=== PATIENT | male | born 1985 | race African-American/Black ===

== ENCOUNTER 2019-09-17 21:15 | Emergency (ER) | payer OTHER ==
[2019-09-17 21:19] VITALS: BP 151/90; PULSE 68; RESP 16; TEMP 98.4
[2019-09-17] MEDS ORDERED: ACET/COD 300 MG/30 MG STARTER PACK 6 TAB BTL PO STA (22:55)
[2019-09-17] MEDS ORDERED: PENICILLIN VK 500MG STARTER 4 TAB BTL PO STA (22:55)
--- NOTE | 2019-09-17 22:57 | ED ---
General Adult HPI - General Chief complaint: Dental/Oral Stated complaint: dental pain Time Seen by Provider: 09/17/19 22:19 Source: patient, RN notes reviewed Mode of arrival: ambulatory Limitations: no limitations - History of Present Illness Initial comments: 34-year-old male without a significant past medical history presents to the emergency department for a chief complaint of dental pain. Patient states that several years ago he had a tooth removed and it cracked his other tooth. States that the past couple days he started having pain in this area. States he believes it may be infected. He denies fevers or chills. Denies length. Denies difficulty opening his mouth. Denies difficulty swallowing. Denies any neck stiffness or headaches.Patient has no other complaints at this time including shortness of breath, chest pain, abdominal pain, nausea or vomiting, headache, or visual changes. - Related Data Previous Rx's Medication Instructions Recorded HYDROcodone/APAP 5-325MG [[place] 1 each PO Q6HR PRN #20 tab 07/20/15 5-325] Ibuprofen [Motrin] 800 mg PO Q8HR PRN #30 tab 07/20/15 Penicillin V Potassium [Pen Vee K] 500 mg PO QID #40 tab 07/20/15 Ibuprofen [Motrin] 600 mg PO Q6HR PRN #20 tab 09/17/19 Penicillin V Potassium [Pen Vee K] 500 mg PO Q6H 10 Days #40 tablet 09/17/19 Allergies Allergy/AdvReac Type Severity Reaction Status Date / Time No Known Allergies Allergy Verified 09/17/19 21:17 Review of Systems ROS Statement: Those systems with pertinent positive or pertinent negative responses have been documented in the HPI. ROS Other: All systems not noted in ROS Statement are negative. Past Medical History Past Medical History: Pneumonia Additional Past Medical History / Comment(s): CELLLITIS RT LOWER LEG AND LT POST CALF, BRONCHITIS,UTI X 1, History of Any Multi-Drug Resistant Organisms: None Reported Past Surgical History: No Surgical Hx Reported Past Anesthesia/Blood Transfusion Reactions: No Reported Reaction Past Psychological History: No Psychological Hx Reported Smoking Status: Current every day smoker Past Alcohol Use History: Rare Past Drug Use History: None Reported - Past Family History Father Family Medical History: Unable to Obtain Mother Family Medical History: Diabetes Mellitus, Hypertension Additional Family Medical History / Comment(s): ECZEMA, ANEMIA,CARPAL TUNNEL ALDO, IBS. General Exam Limitations: no limitations General appearance: alert, in no apparent distress Head exam: Present: atraumatic, normocephalic, normal inspection Eye exam: Present: normal appearance, PERRL, EOMI, scleral icterus, conjunctival injection ENT exam: Present: normal exam, mucous membranes moist, TM's normal bilaterally, normal external ear exam. Absent: normal oropharynx (tooth 19 fracture. No edema on the face or gumline. No evidence of abscess with direct visualization, as well as palpation of the gum line. No sublingual edema.) Neck exam: Present: normal inspection, full ROM. Absent: tenderness, meningismus, lymphadenopathy Respiratory exam: Present: normal lung sounds bilaterally. Absent: respiratory distress, wheezes, rales, rhonchi, stridor Cardiovascular Exam: Present: regular rate, normal rhythm, normal heart sounds. Absent: systolic murmur, diastolic murmur, rubs, gallop, clicks Course Vital Signs 09/17/19 21:17 Temperature 98.4 F Pulse Rate 68 Respiratory 16 Rate Blood Pressure 151/90 O2 Sat by Pulse 97 Oximetry Medical Decision Making - Medical Decision Making Patient has a crack of tooth 19. I do not see any evidence of abscess at this time. There is no facial edema. Case was discussed with Dr. Sims. Patient was started on penicillin and given a Tylenol 3 starter pack. I did discuss with patient that he cannot drive or operate machinery while taking Tylenol 3. He voices understanding. He will also take Motrin. He will return if he has any worsening symptoms. Otherwise he will follow-up with [facility]. Disposition Clinical Impression: Pain, dental Disposition: HOME SELF-CARE Condition: Good Instructions (If sedation given, give patient instructions): Toothache (ED) Additional Instructions: Please take antibiotic as directed. Take Motrin as needed for pain. These were prescribed to [facility] on [address]. Follow-up with primary care in 1-2 days. Follow-up with dentist as well. Return if you have any worsening symptoms. [facility] Address: [address] [place] [id number] Prescriptions: Ibuprofen [Motrin] 600 mg PO Q6HR PRN #20 tab PRN Reason: Pain Penicillin V Potassium [Pen Vee K] 500 mg PO Q6H 10 Days #40 tablet Is patient prescribed a controlled substance at d/c from ED?: No Referrals: Janelle Malin MD [REFERRING] - 1-2 days Time of Disposition: 22:56
== END 2019-09-17 23:45 | disposition home or self-care (01) ==
LOC: EC 21:15
DX: K03.81 Cracked tooth (principal); F17.200 Nicotine dependence, unspecified, uncomplicated
CPT/HCPCS: 99282

== ENCOUNTER 2021-02-21 12:06 | Emergency (ER) | payer OTHER ==
[2021-02-21 12:47] VITALS: TEMP 98.1
[2021-02-21] MEDS ORDERED: ONDANSETRON 4 MG/2 ML VIAL IVP STA (13:12)
[2021-02-21] MEDS ORDERED: SODIUM CHLORIDE 0.9% 1,000 ML IV STA (13:12)
--- NOTE | 2021-02-21 13:25 | ED ---
General Adult HPI - General Source: patient Mode of arrival: ambulatory Limitations: no limitations <Erika Doherty - Last Filed: 02/21/21 15:13> <Mel Glover - Last Filed: 02/21/21 22:43> <Desirae Carreon - Last Filed: 02/22/21 01:11> - General Chief complaint: Weakness Stated complaint: Weakness, Nausea Time Seen by Provider: 02/21/21 12:50 - History of Present Illness Initial comments: Patient is a 35-year-old male presenting to the emergency Department with complaints of feeling fatigued, nausea and vomiting over the past 4 days. Currently taking amoxicillin for a tooth infection, he has been on this intermittently over the past 3-4 weeks. She denies any abdominal pain, no diarrhea. He denies any chest pain or shortness of breath. He states symptoms started about 4 days ago. He denies any fevers or chills, no cough. He denies any abdominal surgeries in the past. He has no further complaints at this time. His vital signs are stable upon arrival. (Erika Doherty) - Related Data Home Medications Medication Instructions Recorded Confirmed Amoxicillin See Taper PO Q8H 02/21/21 02/21/21 Previous Rx's Medication Instructions Recorded Ibuprofen [Motrin] 800 mg PO Q8HR PRN #30 tab 07/20/15 metFORMIN HCL [Glucophage] 500 mg PO BID #60 tab 02/21/21 Allergies Allergy/AdvReac Type Severity Reaction Status Date / Time No Known Allergies Allergy Verified 02/21/21 13:18 Review of Systems ROS Other: All systems not noted in ROS Statement are negative. <Erika Doherty - Last Filed: 02/21/21 15:13> ROS Other: All systems not noted in ROS Statement are negative. <Mel Glover - Last Filed: 02/21/21 22:43> ROS Other: All systems not noted in ROS Statement are negative. <Desirae Carreon - Last Filed: 02/22/21 01:11> ROS Statement: Those systems with pertinent positive or pertinent negative responses have been documented in the HPI. Past Medical History Past Medical History: Pneumonia Additional Past Medical History / Comment(s): CELLLITIS RT LOWER LEG AND LT POST CALF, BRONCHITIS,UTI X 1, History of Any Multi-Drug Resistant Organisms: None Reported Past Surgical History: No Surgical Hx Reported Past Anesthesia/Blood Transfusion Reactions: No Reported Reaction Past Psychological History: No Psychological Hx Reported Smoking Status: Current every day smoker Past Alcohol Use History: Rare Past Drug Use History: None Reported - Past Family History Father Family Medical History: Unable to Obtain Mother Family Medical History: Diabetes Mellitus, Hypertension Additional Family Medical History / Comment(s): ECZEMA, ANEMIA,CARPAL TUNNEL ALDO, IBS. <Erika Doherty - Last Filed: 02/21/21 15:13> General Exam Limitations: no limitations <Erika Doherty - Last Filed: 02/21/21 15:13> - General Exam Comments Initial Comments: GENERAL: Patient is well-developed and well-nourished. Patient is nontoxic and in no acute distress. HEAD: Atraumatic, normocephalic. EYES: Pupils equal round and reactive to light, extraocular movements intact, sclera anicteric, conjunctiva are normal. Eyelids were unremarkable. ENT: TMs normal, nares patent, oropharynx clear without exudates. Moist mucous membranes. NECK: Normal range of motion, supple without lymphadenopathy or JVD. LUNGS: Unlabored respirations. Breath sounds clear to auscultation bilaterally and equal. No wheezes rales or rhonchi. HEART: Regular rate and rhythm without murmurs, rubs or gallops. ABDOMEN: Soft, nontender, normoactive bowel sounds. No guarding, no rebound. No masses appreciated. : Deferred MUSCULOSKELETAL: Normal extremities with adequate strength and normal range of motion, no pitting or edema. No clubbing or cyanosis. NEUROLOGICAL: Patient is alert and oriented x 3. SKIN: Warm, Dry, normal turgor, no rashes or lesions noted. (Erika Doherty) Course Vital Signs 02/21/21 02/21/21 02/21/21 12:43 14:55 17:43 Temperature 98.1 F 98.1 F Pulse Rate 89 74 74 Respiratory 20 18 18 Rate Blood Pressure 152/112 136/73 136/73 O2 Sat by Pulse 98 96 96 Oximetry Medical Decision Making - Lab Data Result diagrams: 02/21/21 13:14 02/21/21 13:14 <Erika Doherty - Last Filed: 02/21/21 15:13> - Lab Data Result diagrams: 02/21/21 13:14 02/21/21 13:14 <Mel Glover - Last Filed: 02/21/21 22:43> - Lab Data Result diagrams: 02/21/21 13:14 02/21/21 13:14 <Desirae Carreon - Last Filed: 02/22/21 01:11> - Medical Decision Making Patient is a 35-year-old male here for complaints of fatigue, nausea and vomiting over the past 3-4 days. No fevers, vitals are stable. No specific complaints of pain no abdominal pain, no chest pain or shortness of breath. (Erika Doherty) Received patient as a signout from Erika Doherty PA-c. He presented today for fatigue nausea vomiting over the last 3-4 days. He was found to have elevated blood sugar. Other labs are unremarkable. He was given dose of insulin IV fluids. She had about to be pending blood sugar improvement. Initial repeat was 398. Abdomen additional 1 L of normal saline. Repeat once the fluids were done was just above 300. He'll be given a dose of metformin here. Discharged with prescription for metformin instructed follow-up with the primary care physician as soon as possible. We did discuss new diagnosis of type 2 diabetes. Return parameters were discussed in detail. He verbalizes understanding and agrees this plan. Case discussed with my attending Dr. Carreon. (Mel Glover) I was available for consultation in the emergency department. The history and physical exam were done by the midlevel provider. I was consulted for this patients care. I reviewed the case with the midlevel provider and based on their presentation of the patient, I agree with the assessment, medical decision making and plan of care as documented. Chart was dictated using F[employer] dictation software. Attempts were made to correct any dictation errors however some typographical errors may persist. (Desirae Carreon) - Lab Data Lab Results 02/21/21 02/21/21 02/21/21 Range/Units 13:14 13:14 13:14 WBC 8.0 (3.8-10.6) k/uL RBC 5.01 (4.30-5.90) m/uL Hgb 17.0 (13.0-17.5) gm/dL Hct 49.6 (39.0-53.0) % MCV 99.0 (80.0-100.0) fL MCH 34.0 (25.0-35.0) pg MCHC 34.4 (31.0-37.0) g/dL RDW 12.1 (11.5-15.5) % Plt Count 326 (150-450) k/uL MPV 7.7 Neutrophils % 68 % Lymphocytes % 22 % Monocytes % 5 % Eosinophils % 4 % Basophils % 0 % Neutrophils # 5.4 (1.3-7.7) k/uL Lymphocytes # 1.8 (1.0-4.8) k/uL Monocytes # 0.4 (0-1.0) k/uL Eosinophils # 0.3 (0-0.7) k/uL Basophils # 0.0 (0-0.2) k/uL Sodium 130 L (137-145) mmol/L Potassium 5.0 (3.5-5.1) mmol/L Chloride 96 L (98-107) mmol/L Carbon Dioxide 22 (22-30) mmol/L Anion Gap 12 mmol/L BUN 12 (9-20) mg/dL Creatinine 0.69 (0.66-1.25) mg/dL Est GFR (CKD-EPI)AfAm >90 (>60 ml/min/1.73 sqM) Est GFR (CKD-EPI)NonAf >90 (>60 ml/min/1.73 sqM) Glucose 645 H* (74-99) mg/dL POC Glucose (mg/dL) (75-99) mg/dL POC Glu Bandsaw Operator ID Calcium 10.0 (8.4-10.2) mg/dL Total Bilirubin 0.7 (0.2-1.3) mg/dL AST 33 (17-59) U/L ALT 39 (4-49) U/L Alkaline Phosphatase 144 H (38-126) U/L Total Protein 7.5 (6.3-8.2) g/dL Albumin 4.5 (3.5-5.0) g/dL Urine Color Colorless Urine Appearance Clear (Clear) Urine pH 5.5 (5.0-8.0) Ur Specific [place] 1.032 (1.001-1.035) Urine Protein Negative (Negative) Urine Glucose (UA) 4+ H (Negative) Urine Ketones 1+ H (Negative) Urine Blood Negative (Negative) Urine Nitrite Negative (Negative) Urine Bilirubin Negative (Negative) Urine Urobilinogen <2.0 (<2.0) mg/dL Ur Leukocyte Esterase Negative (Negative) 02/21/21 02/21/21 02/21/21 Range/Units 14:54 15:38 17:14 WBC (3.8-10.6) k/uL RBC (4.30-5.90) m/uL Hgb (13.0-17.5) gm/dL Hct (39.0-53.0) % MCV (80.0-100.0) fL MCH (25.0-35.0) pg MCHC (31.0-37.0) g/dL RDW (11.5-15.5) % Plt Count (150-450) k/uL MPV Neutrophils % % Lymphocytes % % Monocytes % % Eosinophils % % Basophils % % Neutrophils # (1.3-7.7) k/uL Lymphocytes # (1.0-4.8) k/uL Monocytes # (0-1.0) k/uL Eosinophils # (0-0.7) k/uL Basophils # (0-0.2) k/uL Sodium (137-145) mmol/L Potassium (3.5-5.1) mmol/L Chloride (98-107) mmol/L Carbon Dioxide (22-30) mmol/L Anion Gap mmol/L BUN (9-20) mg/dL Creatinine (0.66-1.25) mg/dL Est GFR (CKD-EPI)AfAm (>60 ml/min/1.73 sqM) Est GFR (CKD-EPI)NonAf (>60 ml/min/1.73 sqM) Glucose (74-99) mg/dL POC Glucose (mg/dL) 449 H 398 H 320 H (75-99) mg/dL POC Glu Bandsaw Operator Rosamaria Villatoro Ashley Smith, Ashley Calcium (8.4-10.2) mg/dL Total Bilirubin (0.2-1.3) mg/dL AST (17-59) U/L ALT (4-49) U/L Alkaline Phosphatase (38-126) U/L Total Protein (6.3-8.2) g/dL Albumin (3.5-5.0) g/dL Urine Color Urine Appearance (Clear) Urine pH (5.0-8.0) Ur Specific [place] (1.001-1.035) Urine Protein (Negative) Urine Glucose (UA) (Negative) Urine Ketones (Negative) Urine Blood (Negative) Urine Nitrite (Negative) Urine Bilirubin (Negative) Urine Urobilinogen (<2.0) mg/dL Ur Leukocyte Esterase (Negative) Disposition <Erika Doherty - Last Filed: 02/21/21 15:13> Is patient prescribed a controlled substance at d/c from ED?: No Time of Disposition: 17:16 <Mel Glover - Last Filed: 02/21/21 22:43> <Desirae Carreon - Last Filed: 02/22/21 01:11> Clinical Impression: New onset type 2 diabetes mellitus Disposition: HOME SELF-CARE Condition: Good Instructions (If sedation given, give patient instructions): Type 2 Diabetes in Adults: New Diagnosis (ED), Basic Carbohydrate Counting (DC) Additional Instructions: Take medication as directed. Follow up with primary care physician for recheck as soon as possible. Return to the emergency department for any new, worsening, or concerning symptoms. Prescriptions: metFORMIN HCL [Glucophage] 500 mg PO BID #60 tab Referrals: None,Stated [Primary Care Provider] - 1-2 days Yves Castro MD [STAFF PHYSICIAN] - 1-2 days Janelle Malin MD [REFERRING] - 1-2 days
[2021-02-21 13:40] LABS: Appearance,Urine Clear (Clear); Bilirubin,Urine Negative (Negative); Blood,Urine Negative (Negative); Color,Urine Colorless; Glucose,Urine (UA) 4+ (Negative); Ketones,Urine 1+ (Negative); Leukocyte Esterase,Urine Negative (Negative); Nitrite,Urine Negative (Negative); PH, Urine 5.5 (5.0-8.0); Protein,Urine Negative (Negative); Specific Gravity,Urine 1.032 (1.001-1.035); Urobilinogen,Urine <2.0 mg/dL (<2.0)
[2021-02-21 13:45] LABS: Basophils % (A) 0 %; Eosinophils # (A) 0.3 k/uL (0-0.7); Eosinophils % (A) 4 %; HCT 49.6 % (39.0-53.0); Lymphocytes # (A) 1.8 k/uL (1.0-4.8); Lymphocytes % (A) 22 %; MCHC 34.4 g/dL (31.0-37.0); Mean Platelet Volume 7.7; Monocytes # (A) 0.4 k/uL (0-1.0); Monocytes % (A) 5 %; Neutrophils # (A) 5.4 k/uL (1.3-7.7); Neutrophils % (A) 68 %; Platelet Count 326 k/uL (150-450); RBC 5.01 m/uL (4.30-5.90); RDW 12.1 % (11.5-15.5)
[2021-02-21 13:57] LABS: ALT 39 U/L (4-49); AST 33 U/L (17-59); African American GFR (CKD) >90 (>60 ml/min/1.73 sqM); Albumin 4.5 g/dL (3.5-5.0); Alkaline Phosphatase 144 U/L (38-126); Anion Gap 12 mmol/L; Blood Urea Nitrogen 12 mg/dL (9-20); Carbon Dioxide 22 mmol/L (22-30); Chloride 96 mmol/L (98-107); Non-African American GFR(CKD) >90 (>60 ml/min/1.73 sqM); Sodium 130 mmol/L (137-145); Total Bilirubin 0.7 mg/dL (0.2-1.3); Total Protein 7.5 g/dL (6.3-8.2)
[2021-02-21 14:11] LABS: Glucose 645 mg/dL (74-99)
[2021-02-21 14:56] LABS: Glucose,Whole Blood 449 mg/dL (75-99)
[2021-02-21] MEDS ORDERED: INSULIN ASPART (NovoLOG) 100 UNIT/ML VIAL SQ ONE (14:57)
[2021-02-21 14:59] VITALS: BP 136/73; PULSE 74; RESP 18
[2021-02-21] MEDS ORDERED: SODIUM CHLORIDE 0.9% 1,000 ML IV ONE (15:39)
[2021-02-21 15:40] LABS: Glucose,Whole Blood 398 mg/dL (75-99)
[2021-02-21] MEDS ORDERED: metFORMIN 500 MG TAB PO STA (17:15)
[2021-02-21 17:16] LABS: Glucose,Whole Blood 320 mg/dL (75-99)
== END 2021-02-21 17:44 | disposition home or self-care (01) ==
LOC: EC 12:06
DX: E11.9 Type 2 diabetes mellitus without complications (principal); R11.2 Nausea with vomiting, unspecified; F17.200 Nicotine dependence, unspecified, uncomplicated; Z79.1 Long term (current) use of non-steroidal anti-inflammatories (NSAID); Z79.84 Long term (current) use of oral hypoglycemic drugs; Z87.440 Personal history of urinary (tract) infections
CPT/HCPCS: 36415; 80053; 85025; 81003; 99285; 96374; 96361 ×3; J2405

== ENCOUNTER 2021-03-15 11:07 | Emergency (ER) | payer OTHER ==
[2021-03-15 11:20] VITALS: BP 137/83; PULSE 85; RESP 16; TEMP 98.6
--- NOTE | 2021-03-15 12:15 | XR ---
EXAMINATION TYPE: XR shoulder complete LT DATE OF EXAM: 03/15/2021 COMPARISON: NONE HISTORY: Pain TECHNIQUE: Three views are submitted. FINDINGS: The osseous structures are intact. There is no acute fracture or dislocation. The AC joint is maint ained. There is a small spur extending off the distal clavicle. IMPRESSION: 1. No acute process.
--- NOTE | 2021-03-15 12:28 | ED ---
Upper Extremity HPI - General Chief Complaint: Extremity Injury, Upper Stated Complaint: Lt Shoulder Pain Time Seen by Provider: 03/15/21 11:21 Source: patient, RN notes reviewed Mode of arrival: ambulatory Limitations: no limitations - History of Present Illness Initial Comments: 35-year-old male presents emergency department for left shoulder pain. Patient states he injured his shoulder. It is ago. Patient states that a call for last couple days because it. Patient states he lifts bends full parts above his shoulder height states is that he felt a pulling, popping sensation to his left shoulder he is [id number] patient states that he has pain with movement of his left shoulder now no prior injuries to his left shoulder no neck pain no headache no weakness. - Related Data Home Medications Medication Instructions Recorded Confirmed Amoxicillin See Taper PO Q8H 02/21/21 02/21/21 Previous Rx's Medication Instructions Recorded Ibuprofen [Motrin] 800 mg PO Q8HR PRN #30 tab 07/20/15 metFORMIN HCL [Glucophage] 500 mg PO BID #60 tab 02/21/21 Ibuprofen [Motrin] 600 mg PO Q8HR PRN #20 tab 03/15/21 Allergies Allergy/AdvReac Type Severity Reaction Status Date / Time No Known Allergies Allergy Verified 03/15/21 11:20 Review of Systems ROS Statement: Those systems with pertinent positive or pertinent negative responses have been documented in the HPI. ROS Other: All systems not noted in ROS Statement are negative. Past Medical History Past Medical History: Pneumonia Additional Past Medical History / Comment(s): CELLLITIS RT LOWER LEG AND LT POST CALF, BRONCHITIS,UTI X 1, History of Any Multi-Drug Resistant Organisms: None Reported Past Surgical History: No Surgical Hx Reported Past Anesthesia/Blood Transfusion Reactions: No Reported Reaction Past Psychological History: No Psychological Hx Reported Smoking Status: Current every day smoker Past Alcohol Use History: Rare Past Drug Use History: None Reported - Past Family History Father Family Medical History: Unable to Obtain Mother Family Medical History: Diabetes Mellitus, Hypertension Additional Family Medical History / Comment(s): ECZEMA, ANEMIA,CARPAL TUNNEL ALDO, IBS. General Exam Limitations: no limitations General appearance: alert, in no apparent distress Head exam: Present: atraumatic, normocephalic, normal inspection Eye exam: Present: normal appearance, PERRL, EOMI. Absent: scleral icterus, conjunctival injection, periorbital swelling Neck exam: Present: normal inspection, full ROM. Absent: tenderness, meningismus, lymphadenopathy Respiratory exam: Present: normal lung sounds bilaterally. Absent: respiratory distress, wheezes, rales, rhonchi, stridor Cardiovascular Exam: Present: regular rate, normal rhythm, normal heart sounds. Absent: systolic murmur, diastolic murmur, rubs, gallop, clicks Extremities exam: Present: other (Left shoulder is pain with near impingement, apprehensions, neurovascular intact no pain was bicep tendon strength, no obvious deformity no erythema) Neurological exam: Present: reflexes normal. Absent: motor sensory deficit Course Vital Signs 03/15/21 11:17 Temperature 98.6 F Pulse Rate 85 Respiratory 16 Rate Blood Pressure 137/83 O2 Sat by Pulse 98 Oximetry Medical Decision Making - Medical Decision Making X-rays negative. Patient symptoms consistent with shoulder strain. Patient was started on anti-inflammatories follow-up with orthopedics. Disposition Clinical Impression: Strain of tendon of left rotator cuff Disposition: HOME SELF-CARE Condition: Stable Instructions (If sedation given, give patient instructions): Rotator Cuff Injury (ED) Additional Instructions: Please return to the Emergency Department if symptoms worsen or any other concerns. Prescriptions: Ibuprofen [Motrin] 600 mg PO Q8HR PRN #20 tab PRN Reason: Pain Is patient prescribed a controlled substance at d/c from ED?: No Referrals: Darin Blanton MD [STAFF PHYSICIAN] - 1-2 days Carter Miramontes MD [STAFF PHYSICIAN] - 1-2 days Time of Disposition: 12:27
== END 2021-03-15 12:54 | disposition home or self-care (01) ==
LOC: EC 11:07
DX: S46.012A Strain of muscle(s) and tendon(s) of the rotator cuff of left shoulder, initial encounter (principal); F17.200 Nicotine dependence, unspecified, uncomplicated; Z79.84 Long term (current) use of oral hypoglycemic drugs; Z87.440 Personal history of urinary (tract) infections; X50.0XXA Overexertion from strenuous movement or load, initial encounter
CPT/HCPCS: 99283

== ENCOUNTER → 2021-06-14 | Outpatient (CLI) | payer OTHER ==
--- NOTE | 2021-06-14 16:03 | US ---
EXAMINATION TYPE: US scrotum with doppler. DATE OF EXAM: 06/14/2021 COMPARISON: NONE CLINICAL HISTORY: 36-year-old male N50.89 Right testicular mass. Palp for a few weeks/ non painful TECHNIQUE: Grayscale and color Doppler Duplex imaging performed of the scrotum. FINDINGS: EXAM MEASUREMENTS: TESTICLES: Right Testicle: 4.5x3.1x2.3 cm Left Testicle: 4.3x3.32.2 cm EPIDIDYMIS HEAD: Right Epididymis: 0.7 cm Left Epididymis: 0.4 cm Doppler performed to assess for testicular vascularity; good bilateral color flow and waveforms are s een. There is no evidence of testicular torsion. Presence of hydroceles: Mild bilaterally Presence of varicoceles: None Right lateral testicle area of palp = 3.0x2.6x1.2cm echogenic region with hypoechoic center. This see ms to be located along the dermal and subcutaneous layer. IMPRESSION: 1. Patient's palpable site along the right lateral scrotum corresponds to a 3.0 cm heterogeneous area that seems to be located along the dermal and subcutaneous layer. Correlate for some type of infecti ous etiology or other dermal pathology. Clinical follow-up recommended. If any growth is noted, the a misael can be rescanned. 2. No sonographic evidence for testicular torsion or mass within the scrotal sac itself. There are sm all bilateral hydroceles.
== END | disposition home or self-care (01) ==
LOC: RADUSWWP 15:00
PROVIDERS: ATTEND Family Medicine
DX: N43.3 Hydrocele, unspecified (principal); N50.89 Other specified disorders of the male genital organs
CPT/HCPCS: 76870; 93975

== ENCOUNTER 2025-02-22 09:16 | Emergency (ER) | payer BC, OTHER ==
[2025-02-22 09:19] VITALS: RESP 18
--- NOTE | 2025-02-22 09:33 | ED ---
Back Pain HPI - General Chief Complaint: Back Pain/Injury Stated Complaint: back/leg pain Time Seen by Provider: 02/22/25 09:20 Source: patient, RN notes reviewed Mode of arrival: ambulatory Limitations: no limitations - History of Present Illness Initial Comments: This is a 39-year-old male who presents to the emergency department for back pain. States that for the last 4 to 5 days he has had pain in the right lower back/buttocks area radiating down the right leg. It occasionally radiates all the way down to the big toe. Denies any injuries. Denies any loss of bowel/bladder control or saddle anesthesia. He has tried taking some ibuprofen without much relief in symptoms. MD Complaint: back pain - Related Data Home Medications Medication Instructions Recorded Confirmed RX: Amoxicillin See Taper PO Q8H 02/21/21 02/21/21 Previous Rx's Medication Instructions Recorded RX: Ibuprofen [Motrin] 800 mg PO Q8HR PRN #30 tab 07/20/15 RX: metFORMIN HCL [Glucophage] 500 mg PO BID #60 tab 02/21/21 RX: Ibuprofen [Motrin] 600 mg PO Q8HR PRN #20 tab 03/15/21 Cyclobenzaprine [Flexeril] 10 mg PO TID PRN #30 tab 02/22/25 Ketorolac [Toradol] 10 mg PO Q6HR PRN #15 tab 02/22/25 RX: Lidocaine 5% Patch [Lidoderm 1 patch TOPICAL DAILY PRN #30 patch 02/22/25 5% Patch] RX: predniSONE 50 mg PO DAILY 5 Days #5 tab 02/22/25 Allergies Allergy/AdvReac Type Severity Reaction Status Date / Time No Known Allergies Allergy Verified 03/15/21 11:20 Review of Systems ROS Statement: Those systems with pertinent positive or pertinent negative responses have been documented in the HPI. ROS Other: All systems not noted in ROS Statement are negative. Past Medical History Past Medical History: Pneumonia Additional Past Medical History / Comment(s): CELLLITIS RT LOWER LEG AND LT POST CALF, BRONCHITIS,UTI X 1, History of Any Multi-Drug Resistant Organisms: None Reported Past Surgical History: No Surgical Hx Reported Past Anesthesia/Blood Transfusion Reactions: No Reported Reaction Past Psychological History: No Psychological Hx Reported Smoking Status: Current every day smoker Past Alcohol Use History: Rare Past Drug Use History: None Reported - Past Family History Father Family Medical History: Unable to Obtain Mother Family Medical History: Diabetes Mellitus, Hypertension Additional Family Medical History / Comment(s): ECZEMA, ANEMIA,CARPAL TUNNEL ALDO, IBS. General Exam Limitations: no limitations General appearance: alert, in no apparent distress Head exam: Present: atraumatic, normocephalic, normal inspection Respiratory exam: Present: normal lung sounds bilaterally. Absent: respiratory distress, wheezes, rales, rhonchi, stridor Cardiovascular Exam: Present: regular rate, normal rhythm Back exam: Present: other (Tenderness to palpation over the right lower back) Neurological exam: Present: alert, oriented X3, CN II-XII intact Psychiatric exam: Present: normal affect, normal mood Skin exam: Present: warm, dry, intact, normal color. Absent: rash Course Vital Signs 02/22/25 02/22/25 09:17 10:20 Temperature 97.7 F 97.9 F Pulse Rate 77 68 Respiratory 18 18 Rate Blood Pressure 136/86 147/86 O2 Sat by Pulse 99 99 Oximetry Medical Decision Making - Medical Decision Making This is a 39-year-old male who presents to the emergency department for back pain. Was pt. sent in by a medical professional or institution? @ -No Did you speak to anyone other than the patient for history? @ -No Did you review nursing and triage notes? @ -Yes, and I agree, it is accurate with regards to the patient's symptoms. Were old charts reviewed? @ -No Differential Diagnosis? @ -Differential Back Pain: Strain, zoster, cauda equina syndrome, epidural abscess, vertebral osteomyelitis, discitis, fracture, subluxation, disc herniation, DJD, spinal stenosis, dissection, AAA, pancreatitis, peptic ulcer disease, pyelonephritis, kidney stone, this is not meant to be an all-inclusive list. EKG interpreted by me (3pts min.)? @ -Not obtained X-rays interpreted by me (1pt min.)? @ -Not obtained CT interpreted by me (1pt min.)? @ -Not obtained U/S interpreted by me (1pt. min.)? @ -Not obtained What testing was considered but not performed? (CT, X-rays, U/S, labs)? Why? @ -None What meds were considered but not given? Why? @ -None Did you discuss the management of the patient with other professionals? @ -No Did you reconcile home meds? @ -No Was smoking cessation discussed for >3mins.? @ -I discussed smoking cessation for greater than 3 minutes. The risk of smoking were discussed with the patient including but not limited to risks of cancer, stroke, coronary artery disease and COPD. Also discussed with patient were multiple methods of quitting smoking. Lastly we discussed the financial cost of smoking. Was critical care preformed (if so, how long)? @ -No Were there social determinants of health that impacted care today? How? (Homelessness, low income, unemployed, alcoholism, drug addiction, transportation, low edu. Level, literacy, decrease access to med. care, halfway, rehab)? @ -No Was there de-escalation of care discussed even if they declined? (Discuss DNR or withdrawal of care, Hospice)? @ -No What co-morbidities impacted this encounter? (DM, HTN, Smoking, COPD, CAD, Cancer, CVA, Hep., AIDS, mental health diagnosis, sleep apnea, morbid obesity)? @ -Smoking Was patient admitted / discharged? @ -Discharged. The description of his symptoms in the right lower back/buttocks with radiation down the leg is suggestive of lumbar radiculopathy/sciatica. He had no injury or red flag signs/symptoms to necess itate imaging. Patient was in agreement with this plan. Pain was managed in the emergency department. Prescription for prednisone, Flexeril, Toradol, and lidocaine patches provided with dosing instructions reviewed. Information for orthopedic spine follow-up provided in the event symptoms persist. He was also given information to become established with a primary care provider for ongoing medical care. Patient discharged home in stable condition. Case discussed with ED attending Dr. Arechiga. Return precautions reviewed in depth, the patient is instructed to return to the emergency department with any new, worsening, or concerning symptoms. Patient verbalized understanding. Undiagnosed new problem with uncertain prognosis? @ -None Drug Therapy requiring intensive monitoring for toxicity (Heparin, Nitro, Insulin, Cardizem)? @ -None Were any procedures done? @ -None Diagnosis/symptom? @ -Lumbar radiculopathy/sciatica Acute, or Chronic, or Acute on Chronic? @ -Acute Uncomplicated (without systemic symptoms) or Complicated (systemic symptoms)? @ -Uncomplicated Side effects of treatment? @ -None Exacerbation, Progression, or Severe Exacerbation] @ -Not applicable Poses a threat to life or bodily function? @ -No Disposition Clinical Impression: Right lumbar radiculopathy, Sciatica, right side, Nicotine dependence Disposition: HOME SELF-CARE Instructions (If sedation given, give patient instructions): Sciatica (ED), Acute Low Back Pain (ED), Lumbar Radiculopathy (ED) Additional Instructions: Return to the emergency department with any new, worsening, or concerning symptoms. Take the prednisone daily for 5 days. Take the Toradol with Tylenol as needed for pain relief. If you choose to take the Toradol, do not take any other anti-inflammatories such as ibuprofen, take one or the other. Take the Flexeril up to 3 times daily for pain control. You can also apply the lidocaine patches daily. Become established with a primary care provider for ongoing medical care. You can also follow-up with orthopedics as listed below. Prescriptions: Cyclobenzaprine [Flexeril] 10 mg PO TID PRN #30 tab PRN Reason: Pain RX: Lidocaine 5% Patch [Lidoderm 5% Patch] 1 patch TOPICAL DAILY PRN #30 patch PRN Reason: Pain RX: predniSONE 50 mg PO DAILY 5 Days #5 tab Ketorolac [Toradol] 10 mg PO Q6HR PRN #15 tab PRN Reason: Pain Is patient prescribed a controlled substance at d/c from ED?: No Referrals: None,Stated [Primary Care Provider] - 1-2 days Milan Mann DO [Doctor of Osteopathic Medicine] - 1-2 days [facility] [NON-STAFF] - 1-2 days [facility] [NON-STAFF] - 1-2 days Forms: Area PCPs Time of Disposition: 11:19
[2025-02-22] MEDS: LIDOCAINE 4% PATCH TOPICAL ONE (09:38)
[2025-02-22] MEDS: KETOROLAC 15 MG/ML 1 ML VIAL IM STA ×2 (09:39→10:32)
[2025-02-22] MEDS: ORPHENADRINE 30 MG/ML 2 ML VIAL IM STA (09:39)
[2025-02-22] MEDS: DEXAMETHASONE SOD PHOSPHATE 10 MG/ML 1 ML VIAL IM STA (09:40)
[2025-02-22] MEDS: MORPHINE SULFATE 4 MG/ML SYRINGE IM STA (10:23)
[2025-02-22] MEDS: ACETAMINOPHEN TAB 500 MG TAB PO STA (10:33)
[2025-02-22 10:35] VITALS: TEMP 97.9
[2025-02-22] MEDS: HYDROcodone/APAP 5-325MG 1 EACH TAB PO STA (11:41)
[2025-02-22] MEDS: traMADol 50 MG STARTER PACK TAB BTL PO STA (11:42)
[2025-02-22 11:51] VITALS: BP 132/86; PULSE 69
== END 2025-02-22 14:06 | disposition home or self-care (01) ==
LOC: EC 09:16
DX: M54.16 Radiculopathy, lumbar region (principal); F17.200 Nicotine dependence, unspecified, uncomplicated
CPT/HCPCS: 99283; 96372; J1100; J2360; J1885